=== PATIENT | male | born 1985 | race Caucasian/White ===

== ENCOUNTER 2023-04-24 16:45 | Outpatient (CLI) | payer OTHER, SELFPAY ==
--- NOTE | ~2023-04-24 | XR_ITS ---
EXAM: XR thoracic spine 3V DATE: 04/24/2023 17:01 HISTORY: M54.9 - Dorsalgia, unspecified . COMPARISON: None available. FINDINGS: Vertebral body alignment intact. Moderate thoracic scoliosis. Intact sternotomy wires. Domitila tebral body heights preserved. Multilevel mild disc space narrowing and marginal osteophytosis. No tr aumatic malalignment or fracture. Visualized lung parenchyma is clear. IMPRESSION: Thoracic scoliosis. Multilevel mild thoracic degenerative disc disease. Reviewed, dictated and finalized at location K. IMPRESSION: Thoracic scoliosis. Multilevel mild thoracic degenerative disc dise ase.
--- NOTE | ~2023-04-24 | XR_ITS ---
EXAM: XR shoulder RT min 2V DATE: 04/24/2023 17:01 HISTORY: M54.9 - Dorsalgia, unspecified . COMPARISON: None available. FINDINGS: Normal mineralization. Intact sternotomy wires. No fracture or dislocation. No lytic or bl astic lesion. Mild AC joint hypertrophy. Minimal acromial enthesopathy. No erosion or periosteal alonso ge. Soft tissues within normal limits. IMPRESSION: Mild AC joint osteoarthritis.. Reviewed, dictated and finalized at location K.
== END 2023-04-24 16:46 | disposition home or self-care (01) ==
PROVIDERS: PCP Family Medicine; Visit Provider Physician Assistant
DX: M41.9 Scoliosis, unspecified (principal); M51.34 Other intervertebral disc degeneration, thoracic region; M19.011 Primary osteoarthritis, right shoulder
CPT/HCPCS: 72072; 73030